=== PATIENT | male | born 1950 | race Caucasian/White ===

== ENCOUNTER 2023-06-04 15:24 | Emergency (ER) | payer MEDICARE, OTHER ==
[2023-06-04] MEDS ORDERED: Take Home: Sulfamethoxazole/Trimethoprim 800-160 MG Tab, 6 Tab Pack PO ONE (16:42)
[2023-06-04 17:48] VITALS: BP 130/53; PULSE 79
== END 2023-06-04 17:15 | disposition home or self-care (01) ==
LOC: DL.ED 15:24
DX: L03.116 Cellulitis of left lower limb (principal); I82.4Z2 Acute embolism and thrombosis of unspecified deep veins of left distal lower extremity; E11.9 Type 2 diabetes mellitus without complications; I10 Essential (primary) hypertension; J44.9 Chronic obstructive pulmonary disease, unspecified; K21.9 Gastro-esophageal reflux disease without esophagitis; M19.90 Unspecified osteoarthritis, unspecified site; Z79.82 Long term (current) use of aspirin; Z79.899 Other long term (current) drug therapy; Z88.1 Allergy status to other antibiotic agents; Z88.5 Allergy status to narcotic agent
CPT/HCPCS: 99283; 99284; A9270

== ENCOUNTER 2023-06-09 09:38 | Inpatient (IN) | payer MEDICARE, OTHER ==
[2023-06-09] MEDS ORDERED: Sennosides/Docusate Sodium 50-8.6 MG Tab PO PRN (11:37)
[2023-06-09] MEDS ORDERED: Magnesium Hydroxide 400 MG/5 ML Susp 30 ML Cup PO PRN (11:37)
[2023-06-09] MEDS ORDERED: Polyethylene Glycol 3350 Powder 17 GM Packet PO PRN (11:37)
[2023-06-09] MEDS ORDERED: Acetaminophen 325 MG Tab PO PRN (11:37)
[2023-06-09] MEDS ORDERED: Albuterol/Ipratropium 3.0-0.5 MG/3 ML Neb Soln NEB PRN (11:37)
[2023-06-09] MEDS ORDERED: Sodium Chloride 0.9% 10 ML Syringe FLUSH PRN (11:37)
[2023-06-09] MEDS ORDERED: HYDROmorphone 0.5 MG/0.5 ML Syringe IVPUSH PRN (11:37)
[2023-06-09] MEDS ORDERED: Acetaminophen/oxyCODONE 325-5 MG Tab PO PRN (11:37)
[2023-06-09] MEDS ORDERED: Naloxone 2 MG/2 ML Syringe IVPUSH PRN (11:37)
[2023-06-09] MEDS ORDERED: Ondansetron 4 MG/2 ML SDV IVPUSH PRN (11:37)
[2023-06-09] MEDS ORDERED: Glucagon,Human Recombinant 1 MG Vial IM PRN (11:46)
[2023-06-09] MEDS ORDERED: 50% Dextrose in Water 50 ML Syringe IVPUSH PRN (11:46)
[2023-06-09] MEDS ORDERED: Rivaroxaban 10 MG Tab PO ONE (11:50)
[2023-06-09 12:10] LABS: HEMATOCRIT 45.3 % (40.0-54.0); HEMOGLOBIN 15.1 g/dL (14.0-18.0); MEAN CORPUSCULAR HEMOGLOBIN 30.8 pg (27.0-34.0); MEAN CORPUSCULAR HGB CONC 33.3 g/dL (33.0-35.0); MEAN CORPUSCULAR VOLUME 92.3 fL (80-100); RED BLOOD CELL COUNT 4.91 10^6/uL (4.6-6.2)
[2023-06-09 12:40] LABS: ALBUMIN 3.6 g/dL (3.4-5.0); ANION GAP 11.6 mEq/L (7-13); BILIRUBIN TOTAL 0.5 mg/dL (0.2-1.0); BUN/CREATININE RATIO 18.4 (No establ ref range); C-REACTIVE PROTEIN 1.2 mg/dL (0.0-0.9); CALCIUM 9.1 mg/dL (8.5-10.1); CREATININE 2.28 mg/dL (0.70-1.30); EST CRCL DRUG DOSING (CG) 27.5 mL/min; POTASSIUM,K 4.6 mmol/L (3.5-5.1); PROTEIN TOTAL,TP 7.1 g/dL (6.4-8.2)
[2023-06-09] MEDS: Insulin Lispro 100 Units/ML 3 ML Vial SUBCUT SCH ×2 (14:23→17:57)
[2023-06-09] MEDS: Sodium Chloride 0.9% 1,000 ML IV SCH (14:44)
[2023-06-09] MEDS: Piperacillin/Tazobactam 2.25 GM in Sodium Chloride 0.9% 50 ML IV SCH ×3 (16:32→21:36)
[2023-06-09] MEDS ORDERED: Albuterol 6.7 GM Inhaler INH PRN (16:47)
[2023-06-09] MEDS: Formoterol/Mometasone 200-5 MCG 8.8 GM Inhaler IH SCH (18:09)
[2023-06-09] MEDS ORDERED: Piperacillin/Tazobactam 2.25 GM in Sodium Chloride 0.9% 50 ML IV SCH (19:15)
[2023-06-09] MEDS ORDERED: Melatonin 3 MG Tab PO PRN (20:46)
[2023-06-09] MEDS: Saccharomyces Boulardii (Probiotic) 250 MG Cap PO SCH (20:59)
[2023-06-09] MEDS ORDERED: RIVAROXABAN 15 MG PO SCH (21:00)
[2023-06-09] MEDS: Sodium Chloride 0.9% 10 ML Syringe FLUSH SCH (21:02)
[2023-06-09] MEDS: PRAVASTATIN SODIUM 80 MG PO SCH (21:04)
[2023-06-09] MEDS: ROPINIROLE 1 MG PO SCH (21:04)
[2023-06-10] MEDS: Piperacillin/Tazobactam 2.25 GM in Sodium Chloride 0.9% 50 ML IV SCH ×4 (04:27→22:22)
[2023-06-10] MEDS: Sodium Chloride 0.9% 1,000 ML IV SCH ×2 (04:32→20:02)
[2023-06-10] MEDS: TIOTROPIUM BROMIDE INH SCH (06:09)
[2023-06-10] MEDS: Formoterol/Mometasone 200-5 MCG 8.8 GM Inhaler IH SCH ×3 (06:13→17:09)
[2023-06-10 06:14] LABS: HEMOGLOBIN 13.3 g/dL (14.0-18.0); MEAN CORPUSCULAR HEMOGLOBIN 30.4 pg (27.0-34.0); MEAN CORPUSCULAR HGB CONC 32.4 g/dL (33.0-35.0); MEAN CORPUSCULAR VOLUME 93.8 fL (80-100); RED BLOOD CELL COUNT 4.37 10^6/uL (4.6-6.2); WHITE BLOOD CELL COUNT,WBC 5.9 10^3/uL (5.0-10.0)
[2023-06-10 06:35] LABS: ALBUMIN 2.9 g/dL (3.4-5.0); ANION GAP 11.7 mEq/L (7-13); BILIRUBIN TOTAL 0.6 mg/dL (0.2-1.0); BUN/CREATININE RATIO 16.6 (No establ ref range); C-REACTIVE PROTEIN 0.6 mg/dL (0.0-0.9); CALCIUM 8.2 mg/dL (8.5-10.1); CREATININE 1.63 mg/dL (0.70-1.30); EST CRCL DRUG DOSING (CG) 38.47 mL/min; MAGNESIUM 2.1 mg/dL (1.8-2.4); POTASSIUM,K 4.7 mmol/L (3.5-5.1); PROTEIN TOTAL,TP 6.1 g/dL (6.4-8.2)
[2023-06-10 06:37] LABS: A/G RATIO 0.91
[2023-06-10] MEDS: Insulin Lispro 100 Units/ML 3 ML Vial SUBCUT SCH ×3 (08:44→17:28)
[2023-06-10] MEDS: Saccharomyces Boulardii (Probiotic) 250 MG Cap PO SCH ×2 (09:01→20:56)
[2023-06-10] MEDS: RIVAROXABAN 20 MG PO SCH (09:02)
[2023-06-10] MEDS: ROPINIROLE 1 MG PO SCH ×3 (09:04→20:55)
[2023-06-10] MEDS: Omeprazole 20 MG Cap.CR **PT OWN MED PO SCH (09:06)
[2023-06-10] MEDS: Tamsulosin 0.4 MG Cap.ER **PT OWN MED PO SCH (09:06)
[2023-06-10] MEDS: VITAMIN D3 PO SCH (09:06)
[2023-06-10] MEDS: CALCIUM CARBONATE PO SCH (09:06)
[2023-06-10] MEDS: LISINOPRIL HCTZ PO SCH (09:07)
[2023-06-10] MEDS: Sodium Chloride 0.9% 10 ML Syringe FLUSH SCH ×2 (09:17→20:59)
[2023-06-10] MEDS: PRAVASTATIN SODIUM 80 MG PO SCH (20:56)
[2023-06-11] MEDS: Piperacillin/Tazobactam 2.25 GM in Sodium Chloride 0.9% 50 ML IV SCH ×2 (04:07→09:44)
[2023-06-11] MEDS: Formoterol/Mometasone 200-5 MCG 8.8 GM Inhaler IH SCH (06:09)
[2023-06-11] MEDS: TIOTROPIUM BROMIDE INH SCH (06:10)
[2023-06-11 06:33] LABS: HEMATOCRIT 39.7 % (40.0-54.0); HEMOGLOBIN 12.9 g/dL (14.0-18.0); MEAN CORPUSCULAR HEMOGLOBIN 30.5 pg (27.0-34.0); MEAN CORPUSCULAR HGB CONC 32.5 g/dL (33.0-35.0); MEAN CORPUSCULAR VOLUME 93.9 fL (80-100); RED BLOOD CELL COUNT 4.23 10^6/uL (4.6-6.2); WHITE BLOOD CELL COUNT,WBC 5.9 10^3/uL (5.0-10.0)
[2023-06-11 06:57] LABS: ALBUMIN 2.8 g/dL (3.4-5.0); ANION GAP 10.4 mEq/L (7-13); BILIRUBIN TOTAL 0.4 mg/dL (0.2-1.0); BUN/CREATININE RATIO 13.5 (No establ ref range); C-REACTIVE PROTEIN 0.3 mg/dL (0.0-0.9); CALCIUM 8.4 mg/dL (8.5-10.1); CREATININE 1.26 mg/dL (0.70-1.30); EST CRCL DRUG DOSING (CG) 49.76 mL/min; MAGNESIUM 1.7 mg/dL (1.8-2.4); POTASSIUM,K 4.4 mmol/L (3.5-5.1); PROTEIN TOTAL,TP 5.9 g/dL (6.4-8.2)
[2023-06-11 07:02] LABS: A/G RATIO 0.9
[2023-06-11] MEDS: Insulin Lispro 100 Units/ML 3 ML Vial SUBCUT SCH (08:23)
[2023-06-11] MEDS: ROPINIROLE 1 MG PO SCH (08:24)
[2023-06-11] MEDS: Saccharomyces Boulardii (Probiotic) 250 MG Cap PO SCH (08:24)
[2023-06-11] MEDS: Tamsulosin 0.4 MG Cap.ER **PT OWN MED PO SCH (08:25)
[2023-06-11] MEDS: RIVAROXABAN 20 MG PO SCH (08:25)
[2023-06-11] MEDS: LISINOPRIL HCTZ PO SCH (08:25)
[2023-06-11] MEDS: CALCIUM CARBONATE PO SCH (08:26)
[2023-06-11] MEDS: VITAMIN D3 PO SCH (08:26)
[2023-06-11] MEDS: Omeprazole 20 MG Cap.CR **PT OWN MED PO SCH (08:27)
[2023-06-11] MEDS: Sodium Chloride 0.9% 10 ML Syringe FLUSH SCH (08:28)
[2023-06-11] MEDS ORDERED: Magnesium Sulfate/Water 2 GM in Premix Bag 1 BAG IV ONE (09:12)
[2023-06-11 12:03] VITALS: BP 156/82; PULSE 58
== END 2023-06-11 12:40 | disposition home or self-care (01) | DRG 300 ==
LOC: INTOOBSV 09:38 → UNDOADMOB 09:38 → DL.MS 09:38 → OBSVTOIN 09:38 → DL.MS 11:37 → OBSVTOIN 06-10 13:49
PROVIDERS: ADMIT Internal Medicine; ATTEND Internal Medicine
DX: I82.401 Acute embolism and thrombosis of unspecified deep veins of right lower extremity (principal); L03.115 Cellulitis of right lower limb; N18.4 Chronic kidney disease, stage 4 (severe); E11.22 Type 2 diabetes mellitus with diabetic chronic kidney disease; G89.29 Other chronic pain; J44.9 Chronic obstructive pulmonary disease, unspecified; K21.9 Gastro-esophageal reflux disease without esophagitis; I12.9 Hypertensive chronic kidney disease with stage 1 through stage 4 chronic kidney disease, or unspecified chronic kidney disease; Z66 Do not resuscitate; E11.65 Type 2 diabetes mellitus with hyperglycemia; G20 Parkinson's disease; E66.9 Obesity, unspecified; Z98.890 Other specified postprocedural states; Z68.37 Body mass index [BMI] 37.0-37.9, adult; Z88.5 Allergy status to narcotic agent; Z88.8 Allergy status to other drugs, medicaments and biological substances; Z79.899 Other long term (current) drug therapy; Z79.84 Long term (current) use of oral hypoglycemic drugs; Z79.01 Long term (current) use of anticoagulants
CPT/HCPCS: 36415; 80053; 82947; 83735; 85027; 85651; 86140; 94664; 96365; 96366; 96376; A9270-GY; G0378; J1815-GY; J2543; J3475; J3490; J7030